=== PATIENT | female | born 1990 | race Two or more races ===

== ENCOUNTER → 2019-12-26 | Emergency (ER) | payer OTHER ==
[~2019-12-26] VITALS: Ht 160 cm; Wt 77.1 kg
[~2019-12-26] MED LIST: LORazepam 2MG/ML-1ML VIAL IV ONE; LORazepam 2MG/ML-1ML VIAL ONE; POTASSIUM EFFERVESENT TAB 25 MEQ PO ONE; PROMETHAZINE HCL 25 MG/ML 1ML IV ONE; PROMETHAZINE HCL 25 MG/ML 1ML ONE; SODIUM CHLORIDE 0.9% 1,000 ML IV ONE
[2019-12-26 12:19] LABS: Basophils # (auto) 0.1 10 ^3/uL (0-0.2); Basophils % (auto) 0.4 % (0.0-2.0); Eosinophils # (auto) 0.1 10 ^3/uL (0-0.8); Eosinophils % (auto) 0.6 % (0.0-7.0); Hematocrit 37.9 % (36.0-46.0); Neutrophils # (auto) 13.2 10 ^3/uL (1.6-8.6)
[2019-12-26 12:21] LABS: Lymphocytes # (auto) 2.6 10 ^3/uL (0.4-5.4); Mean Corpuscular Hemoglobin 23.7 pg (28.0-32.0); Mean Corpuscular Hgb Conc. 31.7 g/dL (32.0-36.0); Mean Corpuscular Volume 74.6 fL (80.0-100.0); Monocytes # (auto) 1.2 10 ^3/uL (0-1.3); Monocytes % (auto) 7.2 % (0.0-12.0); Neutrophils % (auto) 76.8 % (37.0-80.0); Platelet Count (auto) 455 10^3/uL (140-450); Red Blood Cells 5.08 10^6/uL (4.0-5.20); Red Cell Distribution Width 19.9 % (11.8-14.3); White Blood Cell 17.2 10^3/uL (4.4-10.8)
[2019-12-26 12:40] LABS: Albumin 3.8 g/dL (3.4-5.0); Anion Gap 12 (5-15); Blood Urea Nitrogen 13 mg/dL (7-18); Calcium 9.1 mg/dL (8.5-10.1); Carbon Dioxide 19 mmol/L (21-32); Chloride 107 mmol/L (98-107); Glucose 97 mg/dL (74-106); Potassium 3.3 mmol/L (3.5-5.1); Sodium 138 mmol/L (136-145)
[2019-12-26 12:50] LABS: Alanine Aminotransferase 66 U/L (13-56); Alkaline Phosphatase 98 U/L (45-117); Aspartate Aminotransferase 48 U/L (15-37); BUN/Creatinine Ratio 14.8; Bilirubin, Total 0.4 mg/dL (0.2-1.0); GFR African American 98 mL/min; GFR Non-African American 81 mL/min; Total Protein 7.7 g/dL (6.4-8.2)
[2019-12-26 13:08] LABS: Urine Bacteria NONE SEEN /hpf (None Seen); Urine Blood 1+ /uL (Negative); Urine Mucus MANY (None Seen); Urine Specific Gravity 1.029 (1.001-1.035); Urine WBC 11 /hpf (0 - 5)
[2019-12-26 13:26] LABS: Amphetamine Screen, Urine NEGATIVE (NEGATIVE); Barbiturate Scree,Urine NEGATIVE (NEGATIVE); Benzodiazephine Screen, Urine NEGATIVE (NEGATIVE); Cannabinoid Screen, Urine POSITIVE (NEGATIVE); Cocaine Screen, Urine NEGATIVE (NEGATIVE); Phencyclidine Screen, Urine NEGATIVE (NEGATIVE)
[2019-12-26 13:33] LABS: Opiate Scree,Urine NEGATIVE (NEGATIVE)
[2019-12-26 16:02] VITALS: BP 102/55
== END | disposition home or self-care (01) ==
LOC: EDBD 11:54 → ER 11:54
DX: F41.9 Anxiety disorder, unspecified (principal); E86.0 Dehydration; N39.0 Urinary tract infection, site not specified; D72.829 Elevated white blood cell count, unspecified; E87.6 Hypokalemia; F12.10 Cannabis abuse, uncomplicated; Z90.49 Acquired absence of other specified parts of digestive tract
CPT/HCPCS: 36415; 80053; 80307; 81001; 84443; 84484; 85025; 96361; 96374; 96375; 96376; 99285; J2060; J2550; J7030

== ENCOUNTER 2020-10-11 23:12 | Emergency (ER) | payer OTHER ==
[~2020-10-11] VITALS: Ht 157.5 cm; Wt 68.0 kg
[2020-10-12] MEDS ORDERED: HYDROcodone-ACET 10/325MG TAB PO ONE (00:15)
[2020-10-12 01:05] VITALS: BP 119/44
[2020-10-12] MEDS ORDERED: ALPRAZolam 0.25 MG TAB PO ONE (02:30)
[2020-10-12] MEDS ORDERED: KETOROLAC TROMETH 60MG/2ML VIAL IM ONE (02:30)
== END 2020-10-12 03:23 | disposition home or self-care (01) ==
LOC: ER 23:12 → EDBD 23:12 → ER 10-12 03:23
DX: S00.31XA Abrasion of nose, initial encounter (principal); M54.2 Cervicalgia; Z32.02 Encounter for pregnancy test, result negative; V43.52XA Car driver injured in collision with other type car in traffic accident, initial encounter; Y93.89 Activity, other specified; Y92.488 Other paved roadways as the place of occurrence of the external cause; Y99.8 Other external cause status
CPT/HCPCS: 70450; 70486; 72125; 73590; 81025; 96372